=== PATIENT | male | born 1960 ===

== ENCOUNTER → 2017-01-20 | Outpatient (REF) ==
--- NOTE | 2017-01-20 14:49 | REP ---
REASON: Disability assessment. COMPARISON EXAMINATION: None. Limited AP and lateral views were obtained. There is mild anterior lipping. Tiny partial syndesmophytes are seen bilaterally at every level. Vertebral body height alignment is within normal limits. There is slight posterior disc space narrowing at every level. Mild degenerative facet joint changes are suspected at L5-S1 bilaterally. IMPRESSION: Mild chronic changes as described above. Signed by Myles Izaguirre DO 01/20/2017 03:49 P
--- NOTE | 2017-01-20 15:41 | REP ---
Cervical spine series: Three views. History: Degenerative disc disease. Findings: Lateral view shows straightening. The C7 vertebral body is not visible on the lateral radiograph. There is disc space narrowing at C5-6, C6-7 and C4-5 with early discogenic spurring. Some dystrophic soft-tissue calcification is seen in the midline posterior soft tissues superficial to the spinous processes at the C4, C5 and C6 levels. AP and open mouth odontoid views are unremarkable. Impression: Mild degenerative disc changes. Dystrophic soft-tissue calcification in the extra spinal dorsal soft tissues in the mid neck region. Signed by Shabbir Garrido MD 01/20/2017 04:45 P
--- NOTE | 2017-01-20 15:43 | REP ---
Left shoulder series: Three views. History: Disability. Degenerative disease. Findings: There is glenohumeral and acromioclavicular joint osteoarthritic spurring. Alignment is normal. Humeral head is smooth and rounded. Periarticular soft tissues are unremarkable. No erosive changes seen. Impression: Mild to moderate glenohumeral and acromioclavicular joint osteoarthritic changes. Signed by Shabbir Garrido MD 01/20/2017 04:45 P
== END ==
LOC: M SMT 13:23
PROVIDERS: ATTEND Internal Medicine
DX: Z00.00 Encounter for general adult medical examination without abnormal findings (principal)